=== PATIENT | male | born 1950 | race Caucasian/White ===

== ENCOUNTER 2016-11-14 14:28 | Outpatient (CLI) | payer MEDICARE ==
[2016-11-14] MEDS ORDERED: IOPAMIDOL-300 100 ML VIAL IVP ONE (16:29)
== END 2016-11-14 14:29 | disposition home or self-care (01) ==
DX: R31.0 Gross hematuria (principal); Q61.02 Congenital multiple renal cysts; K86.89 Other specified diseases of pancreas; C61 Malignant neoplasm of prostate
CPT/HCPCS: 36415; 74178; 82565; 84520; Q9967

== ENCOUNTER 2017-07-06 14:11 | Emergency (ER) | payer MEDICARE ==
[2017-07-06] MEDS ORDERED: ASPIRIN CHEW 81 MG TABLET PO STA (14:32)
[2017-07-06 14:35] LABS: BASOPHILS # (AUTO) 0.1 10^3/uL (0.0-0.1); EOSINOPHILS # (AUTO) 0.3 10^3/uL (0.0-0.7); EOSINOPHILS % (AUTO) 3.7 %; HCT - HEMATOCRIT 38.1 % (42.0-52.0); HGB - HEMOGLOBIN 13.1 g/dL (14.0-18.0); LYMPHOCYTES # (AUTO) 1.1 10^3/uL (1.5-3.5); LYMPHOCYTES % (AUTO) 16.3 %; MEAN CORPUSCULAR HEMOGLOBIN 31.1 pg (27.0-31.0); MEAN CORPUSCULAR HGB CONC 34.4 g/dL (32.0-36.0); MEAN CORPUSCULAR VOLUME 90.5 fL (80.0-94.0); MEAN PLATELET VOLUME 7.9 fL (7.4-11.4); MONOCYTES # (AUTO) 0.6 10^3/uL (0.0-1.0); MONOCYTES % (AUTO) 8.8 %; NEUTROPHILS # (AUTO) 4.9 10^3/uL (1.5-6.6); NEUTROPHILS % (AUTO) 70.2 %; RED BLOOD COUNT 4.21 10^6/uL (4.70-6.10); RED CELL DISTRIBUTION WIDTH 13.7 % (12.0-15.0)
[2017-07-06 14:49] LABS: ALBUMIN/GLOBULIN RATIO 1.4 (1.0-2.2); BILIRUBIN,TOTAL 0.4 mg/dL (0.2-1.0); CALCIUM 8.9 mg/dL (8.5-10.3); POTASSIUM 4.1 mmol/L (3.5-5.0); TOTAL PROTEIN 6.7 g/dL (6.7-8.2)
--- NOTE | 2017-07-06 15:11 | XRAY Preliminary Report ---
Exam: XR CHEST 1 VIEW IMPRESSION: No acute cardiopulmonary disease seen. [facility] SITE ID: [id number]
--- NOTE | 2017-07-06 15:14 | XRAY Report ---
EXAM: CHEST RADIOGRAPHY EXAM DATE: 07/06/2017 02:59 PM. CLINICAL HISTORY: Chest pain. COMPARISON: None. TECHNIQUE: 1 view. FINDINGS: Lungs/Pleura: No consolidation or airspace disease. No pleural effusion. No pneumothorax. Mediastinum: Within exam limitations, the cardiomediastinal contour is normal. IMPRESSION: No acute cardiopulmonary disease seen. [facility] Referring Provider Line: [phone] SITE ID: [id number]
--- NOTE | 2017-07-06 15:26 | ED Physician Documentation ---
PD HPI CHEST PAIN - Stated complaint Stated Complaint: CHEST TIGHTNESS - Chief complaint Chief Complaint: Cardiac - History obtained from History obtained from: Patient (pt steates that over the past week he has had occasional right sided chest pain. He states that today he started to have the pain shortly after waking this AM. Worse with palpation. NO SOB,) Review of Systems Constitutional: denies: Fever, Chills, Fatigue Eyes: denies: Decreased vision Throat: denies: Oral lesions / sores, Sore throat Cardiac: reports: Chest pain / pressure Respiratory: denies: Dyspnea, Cough, Wheezing GI: denies: Abdominal Pain, Nausea, Vomiting, Constipation, Diarrhea : denies: Dysuria, Frequency Skin: denies: Rash Neurologic: denies: Syncope, Headache, LOC PD PAST MEDICAL HISTORY - Past Medical History Past Medical History: Yes Cardiovascular: Hypertension Other Past Medical History: GI issues - Present Medications Home Medications: Ambulatory Orders Medication Instructions Recorded Confirmed Losartan Potassium 25 mg PO DAILY 07/06/17 07/06/17 Metoprolol Tartrate 25 mg PO DAILY 07/06/17 07/06/17 Pantoprazole [Protonix] 20 mg PO BID 07/06/17 07/06/17 - Allergies Allergies/Adverse Reactions: Allergies Allergy/AdvReac Type Severity Reaction Status Date / Time No Known Drug Allergies Allergy Verified 07/06/17 14:21 - Social History Does the pt smoke?: No Smoking Status: Never smoker PD ED PE NORMAL - Vitals Vital signs reviewed: Yes - General General: Alert and oriented X 3, No acute distress - HEENT HEENT: Atraumatic, Moist mucous membranes - Cardiac Cardiac: RRR, No murmur, No gallop, No rub - Respiratory Respiratory: No respiratory distress, Clear bilaterally - Abdomen Abdomen: Normal bowel sounds, Non tender, Non distended - Back Back: No CVA TTP - Derm Derm: Normal color, Warm and dry, No rash - Neuro Neuro: Alert and oriented X 3 Eye Opening: Spontaneous Motor: Obeys Commands Verbal: Oriented GCS Score: 15 Results - Vitals Vitals: Vital Signs - 24 hr 07/06/17 07/06/17 14:16 14:25 Temperature 36.4 C L Heart Rate 68 Respiratory 16 Rate Blood Pressure 155/71 H Blood Pressure 148/62 H [148/62] Blood Pressure 155/71 H [Left] O2 Saturation 96 Oxygen O2 Source Room air - EKG (time done) 1418 Rate: Rate (enter#) Rhythm: NSR [place]: Normal Intervals: Normal ND, QRS normal QRS: Normal Ischemia: Normal ST segments - Labs Labs: Laboratory Tests 07/06/17 07/06/17 07/06/17 14:25 14:25 14:25 WBC 7.0 RBC 4.21 L Hgb 13.1 L Hct 38.1 L MCV 90.5 MCH 31.1 H MCHC 34.4 RDW 13.7 Plt Count 169 MPV 7.9 Neut # 4.9 Lymph # 1.1 L [place] # 0.6 Eos # 0.3 Baso # 0.1 Absolute Nucleated RBC 0.00 Nucleated RBC % 0.0 Sodium 137 Potassium 4.1 Chloride 101 Carbon Dioxide 26 Anion Gap 10.0 BUN 19 Creatinine 1.0 Estimated GFR (MDRD) 74 L Glucose 148 H Calcium 8.9 Total Bilirubin 0.4 AST 27 ALT 31 Alkaline Phosphatase 67 Troponin I < 0.04 Total Protein 6.7 Albumin 3.9 Globulin 2.8 Albumin/Globulin Ratio 1.4 Lipase 21 L - Rads (name of study) CXR Radiology: Prelim report reviewed, EMP read contemporaneously PD MEDICAL DECISION MAKING - ED course Complexity details: d/w patient ED course: pt with pinpoint right sided chest pain that is worse with palpation. has had constant pain since this AM. trop neg, CXR neg. doubt ACS, or PE or PNA, discussed with patient. he has a follow up with his GI provider on friday. He was given return precautions. Departure - Departure Disposition: Home, Self Care Clinical Impression: Chest wall pain Condition: Good Instructions: ED Strain Chest Wall Follow-Up: Rodney Jacob MD [Primary Care Provider] - Comments: Keep your appointment on friday. Return to the ER for any new or worsening symptoms.
[2017-07-06 16:05] VITALS: BP 143/62
== END 2017-07-06 16:03 | disposition home or self-care (01) ==
LOC: ED 14:11
DX: R07.89 Other chest pain (principal); I44.4 Left anterior fascicular block; R94.31 Abnormal electrocardiogram [ECG] [EKG]; I10 Essential (primary) hypertension
CPT/HCPCS: 71010; 80053; 83690; 84484; 85025; 93005; 99283

== ENCOUNTER 2017-07-06 22:04 | Emergency (ER) | payer MEDICARE ==
[2017-07-06 22:10] VITALS: BP 138/81
[2017-07-07 00:28] LABS: BILIRUBIN,URINE NEGATIVE (NEGATIVE); UA w/ MICROSCOPIC CHARGE YES
[2017-07-07 00:31] LABS: UR CULTURE IF IND INDICATED; WBC,URINE 0-3 /HPF (0-3)
--- NOTE | 2017-07-07 00:57 | ED Physician Documentation ---
PD HPI MALE - Stated complaint Stated Complaint: MALE - Chief complaint Chief Complaint: General - History obtained from History obtained from: Patient - History of Present Illness Timing - onset: Today Timing - details: Abrupt onset, Still present Associated symptoms: Hematuria Similar symptoms before: Work up / diagnostics, Treatment Recently seen: Emergency Dept - Additional information Additional information: Patient is a 66 year old male with a history of prostate CA post resection and radiation who is presenting to the emergency department for hematuria. patient states that he has varicose veins and sometimes when he strains the "pop" and he gets hematuria. patient states that he had hematuria today but it was persistent and he was passing clots so he came to the emergency department for evaluation. Review of Systems Constitutional: denies: Fever, Chills Eyes: reports: Reviewed and negative Ears: reports: Reviewed and negative Nose: reports: Reviewed and negative Throat: reports: Reviewed and negative Cardiac: denies: Chest pain / pressure, Palpitations Respiratory: denies: Dyspnea, Cough GI: denies: Abdominal Pain, Nausea, Vomiting : reports: Hesitancy, Hematuria Skin: reports: Reviewed and negative Musculoskeletal: reports: Reviewed and negative Neurologic: denies: Near syncope, Syncope Psychiatric: reports: Anxiety Immunocompromised: denies: Immunocompromised PD PAST MEDICAL HISTORY - Past Medical History Cardiovascular: Hypertension - Present Medications Home Medications: Ambulatory Orders Medication Instructions Recorded Confirmed Losartan Potassium 25 mg PO DAILY 07/06/17 07/06/17 Metoprolol Tartrate 25 mg PO DAILY 07/06/17 07/06/17 Pantoprazole [Protonix] 20 mg PO BID 07/06/17 07/06/17 - Allergies Allergies/Adverse Reactions: Allergies Allergy/AdvReac Type Severity Reaction Status Date / Time No Known Drug Allergies Allergy Verified 07/06/17 22:10 - Social History Does the pt smoke?: No Smoking Status: Never smoker PD ED PE NORMAL - General General: Alert and oriented X 3, Well developed/nourished - HEENT HEENT: Atraumatic, PERRL, Pharynx benign - Neck Neck: Supple, no meningeal sign - Cardiac Cardiac: RRR, No murmur - Respiratory Respiratory: No respiratory distress - Abdomen Abdomen: Non tender, Non distended - Male Male : Pt declined - Derm Derm: Normal color, Warm and dry - Extremities Extremities: No deformity, Normal ROM s pain - Neuro Neuro: Alert and oriented X 3, No motor deficit, No sensory deficit, Normal speech PD ED PE EXPANDED - General General: Alert, Anxious Results - Vitals Vitals: Vital Signs - 24 hr 07/06/17 22:08 Temperature 36.3 C L Heart Rate 81 Respiratory 18 Rate Blood Pressure 138/81 H O2 Saturation 97 Oxygen O2 Source Room air - Labs Labs: Laboratory Tests 07/07/17 00:00 Urine Color RED/BLOODY Urine Clarity BLOODY Urine pH 8.0 H Ur Specific [place] 1.020 Urine Protein Urine Glucose (UA) NEGATIVE Urine Ketones NEGATIVE Urine Occult Blood LARGE H Urine Nitrite Urine Bilirubin NEGATIVE Urine Urobilinogen 0.2 (NORMAL) Ur Leukocyte Esterase NEGATIVE Urine RBC TNTC H Urine WBC 0-3 Ur Squamous Epith Cells NONE SEEN Urine Bacteria None Seen Ur Microscopic Review INDICATED Urine Culture Comments INDICATED PD MEDICAL DECISION MAKING - ED course Complexity details: reviewed old records, reviewed results, re-evaluated patient , considered differential, d/w patient ED course: patient was seen and examined at bedside. Patient was able to produce a small amount of urine that was mainly blood but there was no bacteria. bladder scan was performed which showed only 120ml of fluid. Patient stated that he still felt full and proceeded to keep drinking. patient states that he barely drinks water. patient had two other small urinary output and repeat bladder scan was under 200ml. the risk benefits of placing a ortiz was not in favor of the patient at this time. Patient required no further work up and was stable for discharge with outpatient follow up. Departure - Departure Disposition: 01 Home, Self Care Clinical Impression: Hematuria Condition: Good Discharge Date/Time: 07/07/17 01:02
== END 2017-07-07 01:02 | disposition home or self-care (01) ==
LOC: ED 22:04
DX: R31.9 Hematuria, unspecified (principal); I83.90 Asymptomatic varicose veins of unspecified lower extremity; I10 Essential (primary) hypertension; Z85.46 Personal history of malignant neoplasm of prostate; R07.9 Chest pain, unspecified; R07.89 Other chest pain; I44.4 Left anterior fascicular block; R94.31 Abnormal electrocardiogram [ECG] [EKG]
CPT/HCPCS: 71010; 80053; 81001; 81003; 83690; 84484; 85025; 87086; 93005; 99283; 99284

== ENCOUNTER 2017-09-05 08:13 | Outpatient (CLI) | payer MEDICARE ==
[2017-09-05] MEDS ORDERED: IOPAMIDOL-300 100 ML VIAL ONE (08:23)
[2017-09-05] MEDS ORDERED: IOPAMIDOL-300 50 ML VIAL ONE (08:23)
[2017-09-05 08:37] LABS: CREATININE 0.8 mg/dL (0.6-1.2)
[2017-09-05] MEDS ORDERED: IOPAMIDOL-300 100 ML VIAL IVP ONE (08:42)
[2017-09-05] MEDS ORDERED: IOPAMIDOL-300 50 ML VIAL PO ONE (08:42)
--- NOTE | 2017-09-05 15:41 | CT Report ---
DATE OF SERVICE: 09/05/2017 CT OF THE ABDOMEN AND PELVIS WITH CONTRAST: 09/05/2017 CLINICAL INDICATION: Followup pancreatic mass TECHNIQUE: Axial CT images of the abdomen and pelvis were obtained with 100 mL Isovue 300 intravenously. COMPARISON: Previous CT of 11/14/2016. FINDINGS: Limited evaluation of the lung bases is unremarkable. ABDOMEN: Trace ascites is seen adjacent to the liver. The gallbladder is dilated. There has been interval increase in size of pancreatic mass, now measuring 7.3 x 4.6 cm. The mass encases the celiac artery and superior mesenteric artery, as well as the left renal vein. There is mild intrahepatic biliary dilatation and dilation of the common bile duct. The spleen is unremarkable. The adrenal glands are unremarkable. The kidneys demonstrate parapelvic cysts. No bowel dilatation, free gas, or abdominal adenopathy is appreciated. PELVIS: Small amount of ascites is seen in the pelvis. Postoperative changes of prostatectomy are present. No pelvic sidewall adenopathy is seen. Osseous structures demonstrate degenerative changes. IMPRESSION: INTERVAL ENLARGEMENT OF PANCREATIC MASS, NOW WITH ENCASEMENT OF THE CELIAC AND SUPERIOR MESENTERIC ARTERIES, LEFT RENAL VEIN, AND OBSTRUCTION OF THE COMMON BILE DUCT. SMALL VOLUME OF ASCITES. In accordance with CT protocol optimization, one or more of the following dose reduction techniques were utilized for this exam: automated exposure control, adjustment of mA and/or KV based on patient size, or use of iterative reconstructive technique. TD: 09/05/2017 16:40
== END 2017-09-05 08:14 | disposition home or self-care (01) ==
LOC: LAB 08:13
PROVIDERS: ATTEND Family Medicine
DX: K86.89 Other specified diseases of pancreas (principal); K83.1 Obstruction of bile duct; R18.8 Other ascites
CPT/HCPCS: 36415; 74177; 82565; Q9967

== ENCOUNTER 2018-02-08 | Emergency (ER) | END 2018-02-08 21:53 | disposition home or self-care (01) ==

== ENCOUNTER 2018-02-20 21:28 | Emergency (ER) | payer MEDICARE ==
[2018-02-20 22:44] VITALS: BP 103/75
--- NOTE | 2018-02-20 22:44 | ED Physician Documentation ---
PD HPI ABD PAIN - Stated complaint Stated Complaint: DRAIN ABD - Chief complaint Chief Complaint: Abd Pain - History obtained from History obtained from: Patient - History of Present Illness Timing - onset: Other (This is a very pleasant 67-year-old gentleman with pancreatic cancer who has recurrent ascites and is here for gradual onset ascites which causes him discomfort and would like it drained. Of note in the interim since his last visit here he has discussed with his oncologist and he is considering hospice and we talked about that a lot.) Review of Systems Constitutional: reports: Fatigue. denies: Fever, Chills GI: reports: Abdominal Pain. denies: Nausea, Vomiting Musculoskeletal: denies: Neck pain, Back pain PD PAST MEDICAL HISTORY - Past Medical History Cardiovascular: Hypertension - Past Surgical History Past Surgical History: Yes - Present Medications Home Medications: Ambulatory Orders Medication Instructions Recorded Confirmed Ondansetron HCl [Zofran] 4 mg PO 02/08/18 Water Pill 02/08/18 - Allergies Allergies/Adverse Reactions: Allergies Allergy/AdvReac Type Severity Reaction Status Date / Time No Known Drug Allergies Allergy Verified 02/20/18 21:48 - Social History Does the pt smoke?: No Smoking Status: Never smoker Does the pt drink ETOH?: No Does the pt have substance abuse?: No - Immunizations Immunizations are current?: No - POLST Patient has POLST: No PD ED PE NORMAL - Vitals Vital signs reviewed: Yes - General General: Alert and oriented X 3, No acute distress - Abdomen Abdomen: Other (He has tense ascites but he is not tender.) - Neuro Neuro: Alert and oriented X 3, Normal speech Results - Vitals Vitals: Vital Signs - 24 hr 02/20/18 02/20/18 02/20/18 21:43 22:10 22:20 Temperature 36.8 C Heart Rate 82 69 70 Respiratory 15 Rate Blood Pressure 89/68 L 110/81 H 101/71 O2 Saturation 99 99 02/20/18 02/20/18 02/20/18 22:28 22:31 22:37 Temperature Heart Rate 71 72 99 Respiratory Rate Blood Pressure 118/73 110/76 109/74 O2 Saturation 99 Oxygen O2 Source Room air Procedures - Paracentesis Preparation: Consent obtained, Ultrasound guidance, Sterile prep and drape, Local anesthesia Location: RLQ Technique: Z-tract, Catheter over needle Fluid: Clear, Volume - enter cc (5.8liters) Aftercare: No complications, Patient tolerated well PD MEDICAL DECISION MAKING - Sepsis Event Vital Signs: Vital Signs - 24 hr 02/20/18 02/20/18 02/20/18 21:43 22:10 22:20 Temperature 36.8 C Heart Rate 82 69 70 Respiratory 15 Rate Blood Pressure 89/68 L 110/81 H 101/71 O2 Saturation 99 99 02/20/18 02/20/18 02/20/18 22:28 22:31 22:37 Temperature Heart Rate 71 72 99 Respiratory Rate Blood Pressure 118/73 110/76 109/74 O2 Saturation 99 Oxygen O2 Source Room air Departure - Departure Disposition: 01 Home, Self Care Clinical Impression: Ascites Qualifiers: Ascites type: malignant Qualified Code(s): R18.0 - Malignant ascites Pancreatic cancer Qualifiers: Pancreatic malignancy location: unspecified Qualified Code(s): C25.9 - Malignant neoplasm of pancreas, unspecified Condition: Good Record reviewed to determine appropriate education?: Yes Instructions: Paracentesis Dc
== END 2018-02-20 22:54 | disposition home or self-care (01) ==
LOC: ED 21:28
DX: R18.0 Malignant ascites (principal); C25.9 Malignant neoplasm of pancreas, unspecified; I10 Essential (primary) hypertension
CPT/HCPCS: 49082; 99283

== ENCOUNTER 2018-03-02 21:03 | Emergency (ER) | payer MEDICARE ==
[2018-03-03] MEDS ORDERED: LIDOCAINE 2%-EPI 1:100000 20 ML MDV ONE (00:23)
[2018-03-03 00:59] VITALS: BP 110/72
--- NOTE | 2018-03-03 01:03 | ED Physician Documentation ---
PD HPI ABD PAIN - Stated complaint Stated Complaint: FLUID DRAINED - Chief complaint Chief Complaint: Abd Pain - History obtained from History obtained from: Patient - History of Present Illness Timing - onset: Chronic Timing - details: Gradual onset, Still present Quality: Fullness/distended Location: All over / everywhere Similar symptoms before: Work up / diagnostics, Treatment Recently seen: Emergency Dept - Additional information Additional information: patient is a 67 year old male with a history of pancreatic cancer who is presenting to the emergency department for abdominal pain and distention. Patient states that he has not been able to schedule out patient paracentesis so he normally comes to the emergency department to get it performed. Review of Systems Ten Systems: 10 systems reviewed and negative Constitutional: denies: Fever, Chills GI: reports: Abdominal Swelling PD PAST MEDICAL HISTORY - Past Medical History Past Medical History: Yes Cardiovascular: Hypertension - Past Surgical History Past Surgical History: Yes - Present Medications Home Medications: Ambulatory Orders Medication Instructions Recorded Confirmed No Known Home Medications [No 03/02/18 03/02/18 Known Home Medications] - Allergies Allergies/Adverse Reactions: Allergies Allergy/AdvReac Type Severity Reaction Status Date / Time No Known Drug Allergies Allergy Verified 03/02/18 21:28 - Social History Does the pt smoke?: No Smoking Status: Never smoker Does the pt drink ETOH?: No Does the pt have substance abuse?: No - Immunizations Immunizations are current?: Yes - POLST Patient has POLST: No PD ED PE NORMAL - Vitals Vital signs reviewed: Yes - General General: Alert and oriented X 3 - HEENT HEENT: Atraumatic - Cardiac Cardiac: RRR - Respiratory Respiratory: No respiratory distress - Derm Derm: Normal color - Extremities Extremities: No deformity PD ED PE EXPANDED - General General: Alert, Other - HEENT HEENT: Dry mucous membranes - Abdomen Abdomen: Distended. No: Rebound, Guarding Results - Vitals Vitals: Vital Signs - 24 hr 03/02/18 03/02/18 03/03/18 21:23 23:06 00:58 Temperature 36.4 C L Heart Rate 88 70 71 Respiratory 16 18 18 Rate Blood Pressure 95/66 119/91 H 110/72 O2 Saturation 100 100 100 Oxygen O2 Source Room air Procedures - Paracentesis Preparation: Consent obtained, Ultrasound guidance, Sterile prep and drape, Local anesthesia Location: RLQ Technique: Catheter over needle Fluid: Clear Aftercare: No complications, Patient tolerated well, Dressing applied PD MEDICAL DECISION MAKING - ED course Complexity details: reviewed old records, reviewed results, re-evaluated patient , considered differential, d/w patient ED course: patient was seen and examined at bedside. Therapeutic paracentisis was performed draining 4 liters of fluid. Patient tolerated well. patient required no further inpatient work up at this time and was stable for discharge with outpatient follow up. - Sepsis Event Vital Signs: Vital Signs - 24 hr 03/02/18 03/02/18 03/03/18 21:23 23:06 00:58 Temperature 36.4 C L Heart Rate 88 70 71 Respiratory 16 18 18 Rate Blood Pressure 95/66 119/91 H 110/72 O2 Saturation 100 100 100 Oxygen O2 Source Room air Departure - Departure Disposition: 01 Home, Self Care Clinical Impression: Ascites Condition: Good Instructions: Paracentesis Dc Follow-Up: Julio Zayas MD [Primary Care Provider] - Tomorrow Comments: you had four liters removed today from you abdomen. You mild have small amount of leaking. You should follow up with your doctor tomorrow to schedule a follow up appointment for drainage. you may return to the emergency department at any time for new, worsening or uncontrollable symptoms.
== END 2018-03-03 01:09 | disposition home or self-care (01) ==
LOC: ED 21:03
DX: R18.8 Other ascites (principal); C25.9 Malignant neoplasm of pancreas, unspecified; I10 Essential (primary) hypertension
CPT/HCPCS: 49082; 99283

== ENCOUNTER 2018-03-10 12:32 | Emergency (ER) | payer MEDICARE ==
--- NOTE | 2018-03-10 13:54 | ED Physician Documentation ---
PD HPI ABD PAIN - Stated complaint Stated Complaint: SIDE PX/DISCOMFORT - Chief complaint Chief Complaint: Abd Pain - History obtained from History obtained from: Patient - History of Present Illness Timing - onset: How many days ago (few days of fatigue, increased abd pain, lightheaded. His ascites is firm and the pain increased more today. No fevers.) Timing - duration: Days Timing - details: Gradual onset, Still present Quality: Cramping, Aching, Fullness/distended Location: All over / everywhere Improved by: No: Laying still Worsened by: Moving, Breathing, Position (feels dyspnea when lying down.) Associated symptoms: No: Fever, Nausea, Vomiting, Diarrhea, Dysuria Similar symptoms before: Diagnosis (tense ascites, and was drained last about 10 days ago, and had it done 4 times before that through outpatient but having to get it rescheduled again and has appt with consumer education specialist this week. Is to get a port placed this week.) Recently seen: Emergency Dept (10 days ago for similar) Review of Systems Ten Systems: 10 systems reviewed and negative Constitutional: denies: Fever, Chills Nose: denies: Rhinorrhea / runny nose, Congestion Throat: denies: Sore throat Cardiac: denies: Chest pain / pressure, Palpitations Respiratory: reports: Dyspnea. denies: Cough, Wheezing GI: reports: Abdominal Pain, Abdominal Swelling, Nausea. denies: Vomiting, Diarrhea, Bloody / black stool : denies: Dysuria, Frequency Neurologic: reports: Generalized weakness. denies: Focal weakness, Numbness PD PAST MEDICAL HISTORY - Past Medical History Cardiovascular: Hypertension - Past Surgical History Past Surgical History: Yes - Present Medications Home Medications: Ambulatory Orders Medication Instructions Recorded Confirmed No Known Home Medications [No 03/02/18 03/02/18 Known Home Medications] - Allergies Allergies/Adverse Reactions: Allergies Allergy/AdvReac Type Severity Reaction Status Date / Time No Known Drug Allergies Allergy Verified 03/02/18 21:28 - Social History Does the pt smoke?: No Smoking Status: Never smoker Does the pt drink ETOH?: No Does the pt have substance abuse?: No - Immunizations Immunizations are current?: Yes - POLST Patient has POLST: No PD ED PE NORMAL - Vitals Vital signs reviewed: Yes (BP initially low but improved with IV fluids. ) - General General: Alert and oriented X 3, No acute distress, Well developed/nourished - HEENT HEENT: Pharynx benign. No: Moist mucous membranes - Neck Neck: Supple, no meningeal sign, No adenopathy - Cardiac Cardiac: RRR, No murmur - Respiratory Respiratory: Clear bilaterally - Abdomen Abdomen: No organomegaly, Other (tensely distended and some tender. No redness nor rash. ). No: Normal bowel sounds (decreased) - Male Male : Deferred - Rectal Rectal: Deferred - Back Back: No CVA TTP - Derm Derm: Normal color, Warm and dry - Extremities Extremities: No tenderness to palpate, Normal ROM s pain, No edema, No calf tenderness / cord - Neuro Neuro: Alert and oriented X 3, No motor deficit, Normal speech Eye Opening: Spontaneous Motor: Obeys Commands Verbal: Oriented GCS Score: 15 Results - Vitals Vitals: Vital Signs - 24 hr 03/10/18 03/10/18 03/10/18 12:44 13:54 17:00 Temperature 36.3 C L Heart Rate 94 87 67 Respiratory 20 14 12 Rate Blood Pressure 75/58 L 93/72 114/87 H O2 Saturation 94 100 100 03/10/18 03/10/18 17:36 18:55 Temperature 97.5 C H Heart Rate 68 76 Respiratory 20 12 Rate Blood Pressure 121/81 H 108/73 O2 Saturation 94 100 Oxygen O2 Source Room air - Labs Labs: Microbiology 03/10/18 17:10 Body Fluid Culture - Preliminary Peritoneal Fluid Laboratory Tests 03/10/18 03/10/18 03/10/18 15:05 15:05 15:05 WBC 8.4 RBC 3.25 L Hgb 11.0 L Hct 31.7 L MCV 97.5 H MCH 33.7 H MCHC 34.6 RDW 15.5 H Plt Count 280 MPV 6.5 L Neut # (Auto) 7.0 H Lymph # (Auto) 0.6 L Bibb # (Auto) 0.8 Eos # (Auto) 0.0 Baso # (Auto) 0.0 Absolute Nucleated RBC 0.00 Nucleated RBC % 0.0 PT 14.3 H INR 1.3 H APTT 29.5 Sodium 121 L Potassium 4.6 Chloride 87 L Carbon Dioxide 26 Anion Gap 7.0 BUN 37 H Creatinine 1.0 Estimated GFR (MDRD) 74 L Glucose 142 H Calcium 7.9 L Magnesium 2.3 Total Bilirubin 1.1 H AST 42 ALT 33 Alkaline Phosphatase 198 H Ammonia Total Protein 5.5 L Albumin 2.3 L Globulin 3.2 Albumin/Globulin Ratio 0.7 L Lipase 18 L Fluid Source Fluid Color Fluid Clarity Fluid WBC Fluid RBC Fluid Neutrophils % Fluid Lymphocytes % Fluid Monocytes % Fluid Macrophages % Fld Mesothelial Cell % 03/10/18 03/10/18 15:05 17:10 WBC RBC Hgb Hct MCV MCH MCHC RDW Plt Count MPV Neut # (Auto) Lymph # (Auto) Bibb # (Auto) Eos # (Auto) Baso # (Auto) Absolute Nucleated RBC Nucleated RBC % PT INR APTT Sodium Potassium Chloride Carbon Dioxide Anion Gap BUN Creatinine Estimated GFR (MDRD) Glucose Calcium Magnesium Total Bilirubin AST ALT Alkaline Phosphatase Ammonia 71.4 H Total Protein Albumin Globulin Albumin/Globulin Ratio Lipase Fluid Source PERITONEAL Fluid Color YELLOW Fluid Clarity HAZY Fluid WBC 166 Fluid RBC 300 Fluid Neutrophils % 7.0 Fluid Lymphocytes % 47.0 Fluid Monocytes % 18.0 Fluid Macrophages % 14.0 Fld Mesothelial Cell % 14.0 Procedures - Paracentesis Preparation: Consent obtained (verbal and department form), Ultrasound guidance , Sterile prep and drape, Local anesthesia Location: RLQ Technique: Z-tract, Catheter over needle Fluid: Clear, Sent for cell count, Sent for gram stain, Sent for culture, Volume - enter cc (5000) Aftercare: No complications, Patient tolerated well, Dressing applied. No: Fluid leak - comment PD MEDICAL DECISION MAKING - ED course Complexity details: reviewed results (got records from [facility] and his baseline sodium has been about 123-125; other labs also about equally abnormal. No prior ammonia level. ), re-evaluated patient (he is feeling better, improved breathing, and improved BP with IV fluids and the paracentesis. ), considered differential (was being scheduled for paracentesis through PCP and has appt with consumer education specialist, but pain of the ascites was too much today and he could not wait the few days for it. Also feeling weak and lightheaded. ) , d/w patient, d/w family - Sepsis Event Vital Signs: Vital Signs - 24 hr 03/10/18 03/10/18 03/10/18 12:44 13:54 17:00 Temperature 36.3 C L Heart Rate 94 87 67 Respiratory 20 14 12 Rate Blood Pressure 75/58 L 93/72 114/87 H O2 Saturation 94 100 100 03/10/18 03/10/18 17:36 18:55 Temperature 97.5 C H Heart Rate 68 76 Respiratory 20 12 Rate Blood Pressure 121/81 H 108/73 O2 Saturation 94 100 Oxygen O2 Source Room air Departure - Departure Disposition: 01 Home, Self Care Clinical Impression: Pancreatic cancer, Hyponatremia Ascites Qualifiers: Ascites type: malignant Qualified Code(s): R18.0 - Malignant ascites Abdominal pain Qualifiers: Abdominal location: generalized Qualified Code(s): R10.84 - Generalized abdominal pain Condition: Stable Record reviewed to determine appropriate education?: Yes Follow-Up: uJlio Zayas MD [Primary Care Provider] - Comments: Continue usual medications. Follow-up with your cancers specialist this week as planned. Return if other symptoms develop. Discharge Date/Time: 03/10/18 19:00
[2018-03-10] MEDS ORDERED: MORPHINE 10 MG/ML VIAL IVP STA (14:30)
[2018-03-10] MEDS ORDERED: SODIUM CHLORIDE 0.9% 1,000 ML IV ONE (14:30)
[2018-03-10] MEDS ORDERED: ALBUMIN 25% 12.5 GM/50 ML VIAL IV STA (14:31)
[2018-03-10] MEDS ORDERED: ONDANSETRON 4 MG/2 ML VIAL IVP STA (14:31)
[2018-03-10 15:21] LABS: BASOPHILS % (AUTO) 0.5 %; EOSINOPHILS % (AUTO) 0.2 %; LYMPHOCYTES # (AUTO) 0.6 10^3/uL (1.5-3.5); MEAN CORPUSCULAR HEMOGLOBIN 33.7 pg (27.0-31.0); MEAN CORPUSCULAR HGB CONC 34.6 g/dL (32.0-36.0); MEAN CORPUSCULAR VOLUME 97.5 fL (80.0-94.0); MEAN PLATELET VOLUME 6.5 fL (7.4-11.4); MONOCYTES # (AUTO) 0.8 10^3/uL (0.0-1.0); MONOCYTES % (AUTO) 9.5 %; NEUTROPHILS % (AUTO) 82.8 %; PLT - PLATELET COUNT 280 10^3/uL (130-450); RED BLOOD COUNT 3.25 10^6/uL (4.70-6.10); RED CELL DISTRIBUTION WIDTH 15.5 % (12.0-15.0); WHITE BLOOD COUNT 8.4 x10^3/uL (4.8-10.8)
[2018-03-10 15:26] LABS: INR 1.3 (0.8-1.2); PT - PROTHROMBIN TIME 14.3 secs (9.9-12.6)
[2018-03-10 15:33] LABS: ALBUMIN 2.3 g/dL (3.2-5.5); ALBUMIN/GLOBULIN RATIO 0.7 (1.0-2.2); BILIRUBIN,TOTAL 1.1 mg/dL (0.2-1.0); CALCIUM 7.9 mg/dL (8.5-10.3); MAGNESIUM 2.3 mg/dL (1.7-2.8); TOTAL PROTEIN 5.5 g/dL (6.7-8.2)
[2018-03-10 18:11] LABS: CC,BF RBC 300 /mm^3
[2018-03-10 18:13] LABS: BF COLOR YELLOW; BF SOURCE PERITONEAL
[2018-03-10 18:56] VITALS: BP 108/73
== END 2018-03-10 19:00 | disposition home or self-care (01) ==
LOC: ED 12:32
DX: C25.9 Malignant neoplasm of pancreas, unspecified (principal); R18.0 Malignant ascites; E87.1 Hypo-osmolality and hyponatremia; R10.84 Generalized abdominal pain; R53.1 Weakness; R42 Dizziness and giddiness; I10 Essential (primary) hypertension
CPT/HCPCS: 36415; 49082; 80053; 82140; 83690; 83735; 85025; 85610; 85730; 87070; 87205; 89051; 96365; 96375; 99283; 99284; P9047

== ENCOUNTER 2018-03-11 16:16 | Observation (INO) | payer MEDICARE ==
[2018-03-11 17:00] LABS: INR 1.3 (0.8-1.2); PT - PROTHROMBIN TIME 14.8 secs (9.9-12.6)
--- NOTE | 2018-03-11 17:02 | ED Physician Documentation ---
History of Present Illness - Stated complaint Stated Complaint: PE - Chief complaint Chief Complaint: General - Additonal information Additional information: hx from pt and family and [facility] onc [employer] 67 male followed by [facility] oncology for pancreatic cancer had CT chest abd pelvis with contrast today at [facility] that showed two possible PEs rad called nurse who called pt and told him to go to the ER he came to [facility] states his BP has been unusually low and he has passed out twice without injury no CP or SOA but + cough abd pain not new, some distension just drained yesterday Review of Systems Constitutional: denies: Fever, Chills Cardiac: denies: Chest pain / pressure Respiratory: reports: Cough. denies: Dyspnea GI: reports: Abdominal Pain Neurologic: reports: Syncope Endocrine: denies: Easy bruising / bleeding Immunocompromised: denies: Immunocompromised PD PAST MEDICAL HISTORY - Past Medical History Cardiovascular: Hypertension - Past Surgical History Past Surgical History: Yes - Present Medications Home Medications: Ambulatory Orders Medication Instructions Recorded Confirmed No Known Home Medications [No 03/02/18 03/11/18 Known Home Medications] - Allergies Allergies/Adverse Reactions: Allergies Allergy/AdvReac Type Severity Reaction Status Date / Time No Known Drug Allergies Allergy Verified 03/02/18 21:28 - Social History Does the pt smoke?: No Smoking Status: Never smoker Does the pt drink ETOH?: No Does the pt have substance abuse?: No - Immunizations Immunizations are current?: Yes - POLST Patient has POLST: No PD ED PE NORMAL - Vitals Vital signs reviewed: Yes - General General: Alert and oriented X 3, Other (cachectic) - HEENT HEENT: Atraumatic - Neck Neck: Supple, no meningeal sign - Cardiac Cardiac: RRR - Respiratory Respiratory: No respiratory distress, Clear bilaterally - Abdomen Abdomen: Soft, Other (mild TTP, mod distension, RLQ bandaid s leak) - Derm Derm: Normal color - Neuro Neuro: Other (alert cooperative weak tired) Results - Vitals Vitals: Vital Signs - 24 hr 03/11/18 03/11/18 03/11/18 16:21 18:45 18:48 Temperature 36.3 C L Heart Rate 77 70 76 Respiratory 20 14 16 Rate Blood Pressure 87/57 L 105/74 91/59 L O2 Saturation 94 98 100 Oxygen O2 Source Room air - EKG (time done) 1651 Rate: Rate (enter#) (71) Rhythm: NSR [place]: LAD Intervals: Normal [place] Ischemia: Non specific changes - Labs Labs: Laboratory Tests 03/11/18 03/11/18 03/11/18 16:50 16:50 16:50 WBC 7.7 RBC 3.16 L Hgb 10.6 L Hct 31.5 L MCV 99.6 H MCH 33.5 H MCHC 33.6 RDW 15.6 H Plt Count 235 MPV 6.9 L Neut # (Auto) 6.5 Lymph # (Auto) 0.6 L [place] # (Auto) 0.6 Eos # (Auto) 0.0 Baso # (Auto) 0.0 Absolute Nucleated RBC 0.00 Nucleated RBC % 0.0 PT 14.8 H INR 1.3 H APTT 26.8 Sodium 122 L Potassium 5.1 H Chloride 88 L Carbon Dioxide 27 Anion Gap 7.0 BUN 33 H Creatinine 0.8 Estimated GFR (MDRD) 96 Glucose 106 H Calcium 7.7 L - Rads (name of study) CTPA Radiology: See rad report (RLL branch vessel PE, no infaarct, no apparent right heart strain) PD MEDICAL DECISION MAKING - ED course ED course: d/w oncology [employer] for the pt and he advises that after reviewing pt chart he finds no contraindications to anticoagulation (no brain mets etc) onc recommends pt get lovenox 1mg / kg BID and that I write for a 30 days supply however pt has low BP which is new for him last few days so PE risk severity index = high risk will admit for further eval, perhaps echo etc spoke to hospitalist Dr Malone and 750 PM pt and family updated added on lactate and blood cx as well - Sepsis Event Vital Signs: Vital Signs - 24 hr 03/11/18 03/11/18 03/11/18 16:21 18:45 18:48 Temperature 36.3 C L Heart Rate 77 70 76 Respiratory 20 14 16 Rate Blood Pressure 87/57 L 105/74 91/59 L O2 Saturation 94 98 100 Oxygen O2 Source Room air Departure - Departure Disposition: ED Place in Observation Clinical Impression: Pancreatic cancer Hypotension Qualifiers: Hypotension type: unspecified hypotension type Qualified Code(s): I95.9 - Hypotension, unspecified Pulmonary embolism Qualifiers: Pulmonary embolism type: other Chronicity: acute Acute cor pulmonale presence: without acute cor pulmonale Qualified Code(s): I26.99 - Other pulmonary embolism without acute cor pulmonale Condition: Fair
[2018-03-11] MEDS ORDERED: SODIUM CHLORIDE 0.9% 1,000 ML IV ONE ×2 (17:04→21:00)
[2018-03-11 17:11] LABS: LYMPHOCYTES # (AUTO) 0.6 10^3/uL (1.5-3.5); MONOCYTES # (AUTO) 0.6 10^3/uL (0.0-1.0); NEUTROPHILS # (AUTO) 6.5 10^3/uL (1.5-6.6); WHITE BLOOD COUNT 7.7 x10^3/uL (4.8-10.8)
[2018-03-11 17:12] LABS: CALCIUM 7.7 mg/dL (8.5-10.3); CREATININE 0.8 mg/dL (0.6-1.2)
[2018-03-11] MEDS ORDERED: IOPAMIDOL-300 100 ML VIAL ONE (17:18)
[2018-03-11 17:36] LABS: BASOPHILS % (AUTO) 0.5 %; EOSINOPHILS % (AUTO) 0.1 %; HGB - HEMOGLOBIN 10.6 g/dL (14.0-18.0); LYMPHOCYTES % (AUTO) 7.7 %; MEAN CORPUSCULAR HEMOGLOBIN 33.5 pg (27.0-31.0); MEAN CORPUSCULAR HGB CONC 33.6 g/dL (32.0-36.0); MEAN CORPUSCULAR VOLUME 99.6 fL (80.0-94.0); MEAN PLATELET VOLUME 6.9 fL (7.4-11.4); MONOCYTES % (AUTO) 7.3 %; NEUTROPHILS % (AUTO) 84.4 %; PLT - PLATELET COUNT 235 10^3/uL (130-450); RED BLOOD COUNT 3.16 10^6/uL (4.70-6.10); RED CELL DISTRIBUTION WIDTH 15.6 % (12.0-15.0)
[2018-03-11] MEDS ORDERED: IOPAMIDOL-300 100 ML VIAL IVP ONE (18:19)
[2018-03-11] MEDS ORDERED: SODIUM BICARBONATE ABBOJECT 50 MEQ/50 ML SYRINGE IVP STA (18:23)
--- NOTE | 2018-03-11 18:42 | CT Report ---
Procedure Date: 03/11/2018 Accession Number: [id number] / [id number] Procedure: CT - Chest Angio (PE) CPT Code: FULL RESULT: EXAM: CT ANGIOGRAM CHEST EXAM DATE: 03/11/2018 06:14 PM. CLINICAL HISTORY: Pulmonary embolism. COMPARISON: None. TECHNIQUE: Routine helical imaging was performed through the chest in the pulmonary arterial phase. IV Contrast: 80 ML ISOVUE 300. Reconstructions: Coronal 3-D MIP reconstructions.Sagittal and coronal. In accordance with CT protocol optimization, one or more of the following dose reduction techniques were utilized for this exam: automated exposure control, adjustment of mA and/or KV based on patient size, or use of iterative reconstructive technique. FINDINGS: Pulmonary Arteries: Diagnostic quality: Adequate through the segmental arteries. Study is positive for pulmonary embolism within branch vessels supplying the right lower lobe. There is no evidence of central embolus. No clear evidence of right heart strain. Lungs/Pleura: No evidence of lobar consolidation or effusion. No central airway abnormalities. No pneumothorax. Mediastinum: Heart size is normal. There are no enlarged axillary, supraclavicular, mediastinal, or hilar lymph nodes. Thoracic Aorta: Unremarkable. Upper Abdomen: There is large ascites. There is pneumobilia. Biliary stent is in place. There is marked by stool within colon. Other: None. IMPRESSION: 1. Study is positive for pulmonary embolism within branch vessels supplying the right lower lobe. No evidence of central embolus. No clear evidence of right heart strain. 2. There is no evidence of thoracic aortic dissection. 3. Lungs demonstrate no evidence of focal infiltrate or pneumothorax. 4. There is large ascites. There is pneumobilia. There is large volume stool within visualized colon. RAD[facility]
[2018-03-11] MEDS ORDERED: ENOXAPARIN 60 MG/0.6 ML SYRINGE SUBQ STA (18:50)
[2018-03-11] MEDS ORDERED: ZOLPIDEM 5 MG TABLET PO PRN (19:49)
[2018-03-11] MEDS ORDERED: SODIUM CHLORIDE FLUSH 0.9% 10 ML SYRINGE IVP PRN (19:49)
[2018-03-11] MEDS ORDERED: PROMETHAZINE 25 MG/1 ML VIAL IM PRN (19:49)
[2018-03-11] MEDS ORDERED: oxyCODONE 5 MG TABLET PO PRN (19:49)
[2018-03-11] MEDS ORDERED: ACETAMINOPHEN 325 MG TABLET PO PRN (19:49)
[2018-03-11] MEDS ORDERED: IBUPROFEN 400 MG TABLET PO PRN (19:49)
[2018-03-11] MEDS ORDERED: PROCHLORPERAZINE 10 MG/2 ML VIAL IVP PRN (19:49)
[2018-03-11] MEDS ORDERED: ONDANSETRON 4 MG/2 ML VIAL IVP PRN (19:49)
--- NOTE | 2018-03-11 19:55 | HISTORY & PHYSICAL EXAMINATION ---
Chief Complaint - Chief Complaint Chief Complaint: Told to come to hospital due to clot in his lungs. History of Present Illness - Admitted From Admitted From:: Emergency department - History Obtained From Records Reviewed: Yes History obtained from: Patient Exam Limitations: None - History of Present Illness HPI Comment/Other: Patient is a 67-year-old gentleman with a past medical history significant for pancreatic cancer status post 7 cycles of chemotherapy starting in September 2017 which he has not tolerated well with frequent diarrhea, weight loss and poor hydration. 2 weeks ago the patient's chemotherapy was discontinued by his oncologist due to poor tolerance. The patient states that over the last 2 weeks he has regained much of his strength and is feeling significantly better. He states that he is now motivated to try treatment again. He states that he is scheduled to see an oncologist in [place] tomorrow to discuss a possible clinical trial. He states that yesterday he was seen here at [facility] for a therapeutic paracentesis during which 5 L of fluid were removed from his abdomen. He states that today he went to [facility] for a scheduled CT of his abdomen and pelvis to evaluate the response of his cancer to chemotherapy. He states he was headed back home with his when he received a phone call from [facility] telling him to go to the hospital as he appears to have a clot in his lungs. The patient presented to the emergency department at [facility] with a chief complaint of being told to come to the hospital due to clot in his lungs. The patient denies any chest pain, shortness of air, orthopnea, PND, palpitations, fevers or chills. The patient does admit to feeling weak and tired due to his chemotherapy but states this is been improving. He also states that he has had decreased appetite which is also been improving. He does admit to weight loss over the last 6 months. The patient does admit to increased lower extremity swelling in bilateral lower extremities. He also states that he has some hyperpigmentation of his knees that started today. The patient does admit to constipation for the last couple of days. He also states that he has been feeling dizzy since his paracentesis yesterday. The patient denies any headaches, blurred vision, runny nose, sore throat, difficulty swallowing, nasal congestion, abdominal pain, nausea, vomiting, diarrhea, urinary urgency, urinary frequency, dysuria, muscle aches, back pain, neck stiffness, or any focal neurologic deficits. The patient also has a past medical history significant for prostate cancer status post prostatectomy and radiation which has been in remission for many years. On presentation to the emergency department the patient is afebrile and heart rate is 77. The patient however was hypotensive with a blood pressure of 87/57 and remained with blood pressures between 80 and 90 systolic. The patient was not in any respiratory distress and was not hypoxic. The patient's initial lab work did reveal a mild anemia with a hemoglobin of 10.6. It also revealed a sodium of 122 with a potassium of 5.1 and chloride of 88 suggesting that the patient was likely dehydrated. The patient did appear to be dry on examination and was given fluid in the emergency department however blood pressure did remain low. The patient did undergo a CT angiogram of his chest/thorax which revealed pulmonary embolism within branch vessels supplying the right lower lobe. There was no clear evidence of right heart strain or central embolus on the CT angiogram. The patient was placed in observation for treatment with Lovenox for the pulmonary embolism, echocardiogram and IV fluids for his hypotension. The patient's oncologist was contacted by the emergency room physician and he did recommend Lovenox for treatment of the patient's pulmonary embolism. History - Past Medical History Cardiovascular: reports: Hypertension GI: reports: Other (Pancreatic Cancer) : reports: Other (Prostate cancer status post prostatectomy and radiation.) MRSA Hx?: No - Family & Social History Family History: Mother: (Mother and father are both healthy), Father: , Other family: Cancer (Uncle and cousin have prostate cancer history) Living arrangement: At home Living Situation: With spouse/s.o. Social History Notes: Patient lives in [place] with his . They have one son who is 47 years old and lives in [place] but is here helping out given the patient's condition. 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 The patient quit drinking alcohol about 3 years ago and even at that time rarely drank. He denies any tobacco use or illicit drug use. - POLST Patient has POLST: No POLST Status: Full Code Meds/Allgy - Home Medications Home Medications: Ambulatory Orders Medication Instructions Recorded Confirmed No Known Home Medications [No 03/02/18 03/11/18 Known Home Medications] - Allergies Allergies/Adverse Reactions: Allergies Allergy/AdvReac Type Severity Reaction Status Date / Time No Known Drug Allergies Allergy Verified 03/02/18 21:28 Review of Systems - Other Findings Other Findings: A comprehensive review of systems was performed the pertinent positives and negatives are stated above in the HPI and the remainder of the review of systems is negative. Exam - Vital Signs Reviewed Vital Signs: Yes Vital Signs: Vital Signs x48h Temp Pulse Resp BP Pulse Ox 03/11/18 18:48 76 16 91/59 L 100 03/11/18 18:45 70 14 105/74 98 03/11/18 16:21 36.3 C L 77 20 87/57 L 94 - Physical Exam General Appearance: positive: No acute distress, Alert, Other (Cachectic appearing) Eyes Bilateral: positive: Normal inspection, PERRL, EOMI, No lid inflammation, Conjunctivae nml, No scleral icterus ENT: positive: ENT inspection nml, Pharynx nml, Dry mucous membranes. negative : Purulent nasal drainage, Pharyngeal erythema, Oral lesions Neck: positive: Nml inspection, Thyroid nml, No JVD, Trachea midline. negative : Lymphadenopathy (R), Lymphadenopathy (L), Carotid bruit, Tracheal deviation Respiratory: positive: Chest non-tender, No respiratory distress, Breath sounds nml. negative: Wheezes, Rales, Rhonchi Cardiovascular: positive: Regular rate & rhythm, No murmur, No gallop Peripheral Pulses: positive: 2+ Abdomen: positive: Non-tender, No organomegaly, Nml bowel sounds, Other ( Abdomen is distended with positive fluid wave). negative: Guarding, Rebound, Hepatomegaly Back: positive: Nml inspection. negative: CVA tenderness (R), CVA tenderness (L ) Skin: positive: Color nml, No rash, Warm, Dry, Other (Patient has discoloration of both of his knees). negative: Cyanosis, Diaphoresis, Pallor Extremities: positive: Non-tender, Full ROM, Nml appearance, Pedal edema ( Bilateral lower extremity swelling up to the patient's knees) Neurologic/Psychiatric: positive: Oriented x3, CN's nml (2-12), Motor nml, Sensation nml, Mood/affect nml Conclusion/Plan - Problem List (1) Pulmonary embolism Conclusion/Plan: Patient went for a CT of his abdomen and pelvis to follow-up on response to chemotherapy for his pancreatic cancer. Incidentally on the CT scan was concerning for pulmonary embolism and therefore patient was called on his way home and told to go to the emergency department. Here in the emergency department the patient presented without any hypoxia or shortness of breath but underwent a CT angiogram of his lungs which revealed a pulmonary embolism within a branch vessel supplying the right lower lobe without evidence of central embolus or evidence of any right heart strain. The emergency room physician spoke with the patient's oncologist who recommended that the patient be started on Lovenox for pulmonary embolism in the setting of a malignancy. Patient likely has hypercoagulable state secondary to ongoing pancreatic cancer. Plan: Patient will be treated with Lovenox 1 mg/kg twice a day We will get an echocardiogram in the morning Continue to monitor patient overnight in observation for worsening respiratory status or evidence of right heart strain. Telemetry monitoring Qualifiers: Pulmonary embolism type: other Chronicity: acute Acute cor pulmonale presence: without acute cor pulmonale Qualified Code(s): I26.99 - Other pulmonary embolism without acute cor pulmonale (2) Hypotension Conclusion/Plan: On presentation to the emergency department the patient is hypotensive with blood pressure running in the 80s-90s systolic. The patient states that this is not normal for him and he does have previous history of hypertension. The patient does appear dry on examination and did undergo a paracentesis the other day with removal of 5 L of fluid. The patient's hypertension is unlikely to be due to his pulmonary embolism given that this does not appear to be a saddle PE or a large PE with any right heart strain. The patient is not hypoxic or short of breath. Likely the hypotension is secondary to dehydration. Patient will be given IV fluids and we will monitor to see if we can improve his blood pressure. We will hold any antihypertensive medications while the blood pressure is low. Qualifiers: Hypotension type: unspecified hypotension type Qualified Code(s): I95.9 - Hypotension, unspecified (3) Hyponatremia Conclusion/Plan: Appears to have hypovolemic hyponatremia this patient appears to be dehydrated. The patient did undergo a therapeutic paracentesis just yesterday with removal of 5L of fluid which could have caused significant fluid shift and volume loss. The patient's sodium was 121 yesterday but previous value was in the normal range. Patient will be given IV fluids and we will continue to monitor the patient's sodium. (4) Pancreatic cancer Conclusion/Plan: Patient has a history of pancreatic cancer for which he has been getting his treatment at [facility]. The patient also has ascites secondary to the pancreatic cancer and just underwent a therapeutic paracentesis with removal of 5L of ascitic fluid. The patient has undergone 7 cycles of chemotherapy with poor tolerance secondary to diarrhea, weight loss and poor appetite. Just 2 weeks ago his oncologist decided to stop chemotherapy. Patient is feeling significantly better after stopping chemotherapy over the last 2 weeks. He is motivated to start a clinical trial for which she was scheduled to see a oncologist in [place] tomorrow however we will have to miss this appointment. Plan: Patient will be given supportive care for any symptoms of his pancreatic cancer including pain, nausea or vomiting. Patient would like to continue to be a full code at this time. Patient will follow-up for further treatment as an outpatient. - Lab Results Lab results reviewed: Yes Fish Bones: 03/11/18 16:50 03/11/18 16:50 Other Lab Results: Laboratory Results WBC 7.7 x10^3/uL (4.8-10.8) 03/11/18 16:50 RBC 3.16 10^6/uL (4.70-6.10) L 03/11/18 16:50 Hgb 10.6 g/dL (14.0-18.0) L 03/11/18 16:50 Hct 31.5 % (42.0-52.0) L 03/11/18 16:50 MCV 99.6 fL (80.0-94.0) H 03/11/18 16:50 MCH 33.5 pg (27.0-31.0) H 03/11/18 16:50 MCHC 33.6 g/dL (32.0-36.0) 03/11/18 16:50 RDW 15.6 % (12.0-15.0) H 03/11/18 16:50 Plt Count 235 10^3/uL (130-450) 03/11/18 16:50 MPV 6.9 fL (7.4-11.4) L 03/11/18 16:50 Neut # (Auto) 6.5 10^3/uL (1.5-6.6) 03/11/18 16:50 Lymph # (Auto) 0.6 10^3/uL (1.5-3.5) L 03/11/18 16:50 [place] # (Auto) 0.6 10^3/uL (0.0-1.0) 03/11/18 16:50 Eos # (Auto) 0.0 10^3/uL (0.0-0.7) 03/11/18 16:50 Baso # (Auto) 0.0 10^3/uL (0.0-0.1) 03/11/18 16:50 Absolute Nucleated RBC 0.00 x10^3/uL 03/11/18 16:50 Nucleated RBC % 0.0 /100WBC 03/11/18 16:50 PT 14.8 secs (9.9-12.6) H 03/11/18 16:50 INR 1.3 (0.8-1.2) H 03/11/18 16:50 APTT 26.8 secs (24.9-33.3) 03/11/18 16:50 Sodium 122 mmol/L (135-145) L 03/11/18 16:50 Potassium 5.1 mmol/L (3.5-5.0) H 03/11/18 16:50 Chloride 88 mmol/L (101-111) L 03/11/18 16:50 Carbon Dioxide 27 mmol/L (21-32) 03/11/18 16:50 Anion Gap 7.0 (6-13) 03/11/18 16:50 BUN 33 mg/dL (6-20) H 03/11/18 16:50 Creatinine 0.8 mg/dL (0.6-1.2) 03/11/18 16:50 Estimated GFR (MDRD) 96 (>89) 03/11/18 16:50 Glucose 106 mg/dL (70-100) H 03/11/18 16:50 Calcium 7.7 mg/dL (8.5-10.3) L 03/11/18 16:50 - Diagnostic Imaging Results Diagnostic Imaging Results: positive: Final report reviewed Diagnostic Imaging Results Comments: CT angiogram chest/thorax Impression: 1. Study is positive for pulmonary embolism within branch vessels supplying the right lower lobe. No evidence of central embolus. No clear evidence of right heart strain. 2. There is no evidence of thoracic aortic dissection. 3. Lungs demonstrate no evidence of focal infiltrate or pneumothorax. 4. There is large ascites. There is pneumobilia. There is large volume stool within the visualized colon. Core Measures - Anticipated LOS I expect patient to be DC'd or transferred within 96 hours.: Yes - DVT/VTE - Prophylaxis VTE/DVT Device ordered at admit?: Yes
[2018-03-11] MEDS: SODIUM CHLORIDE 0.9% 1,000 ML IV SCH ×2 (20:50→22:00)
[2018-03-11] MEDS ORDERED: ZINC OXIDE 20% OINT 28.35 GM TUBE TOP PRN (21:56)
[2018-03-12] MEDS: SODIUM CHLORIDE FLUSH 0.9% 10 ML SYRINGE IVP SCH ×3 (05:26→16:19)
[2018-03-12 06:13] LABS: BASOPHILS % (AUTO) 0.3 %; EOSINOPHILS % (AUTO) 0.4 %; HGB - HEMOGLOBIN 9.2 g/dL (14.0-18.0); LYMPHOCYTES # (AUTO) 0.6 10^3/uL (1.5-3.5); LYMPHOCYTES % (AUTO) 11.3 %; MEAN CORPUSCULAR HEMOGLOBIN 33.8 pg (27.0-31.0); MEAN CORPUSCULAR HGB CONC 33.9 g/dL (32.0-36.0); MEAN CORPUSCULAR VOLUME 99.5 fL (80.0-94.0); MEAN PLATELET VOLUME 6.8 fL (7.4-11.4); MONOCYTES # (AUTO) 0.5 10^3/uL (0.0-1.0); MONOCYTES % (AUTO) 9.1 %; NEUTROPHILS % (AUTO) 78.9 %; PLT - PLATELET COUNT 174 10^3/uL (130-450); RED BLOOD COUNT 2.73 10^6/uL (4.70-6.10); RED CELL DISTRIBUTION WIDTH 15.7 % (12.0-15.0)
[2018-03-12 06:27] LABS: INR 1.3 (0.8-1.2); PT - PROTHROMBIN TIME 14.7 secs (9.9-12.6)
[2018-03-12 06:40] LABS: ALBUMIN 1.9 g/dL (3.2-5.5); ALBUMIN/GLOBULIN RATIO 0.8 (1.0-2.2); BILIRUBIN,TOTAL 0.8 mg/dL (0.2-1.0); CALCIUM 7.3 mg/dL (8.5-10.3); CREATININE 0.7 mg/dL (0.6-1.2); MAGNESIUM 2.1 mg/dL (1.7-2.8); PHOSPHORUS 2.9 mg/dL (2.5-4.6); TOTAL PROTEIN 4.3 g/dL (6.7-8.2)
[2018-03-12] MEDS ORDERED: POLYETHYLENE GLYCOL 3350 17 GM PACKET PO SCH (09:00)
[2018-03-12] MEDS ORDERED: FAMOTIDINE 20 MG TABLET PO SCH (09:00)
[2018-03-12] MEDS ORDERED: ENOXAPARIN 60 MG/0.6 ML SYRINGE SUBQ SCH (09:00)
[2018-03-12] MEDS: SODIUM CHLORIDE 0.9% 1,000 ML IV SCH (09:33)
[2018-03-12 16:03] VITALS: BP 96/66
--- NOTE | 2018-03-12 16:03 | Discharge Plan ---
Discharge Plan Disposition: Home, Self Care Condition: Good Prescriptions: Enoxaparin [Lovenox] 60 mg SUBQ BID #60 syringe Diet: Regular Activity Restrictions: Activity as Tolerated Shower Restrictions: No Driving Restrictions: No Weight Bearing: Full Weight Additional Instructions or Follow Up instructions: You were admitted due to a low sodium level and were found to have blood clots in your lungs. 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 Please see your PCP within one week. No Smoking: If you smoke, Please STOP! Call for help. Follow-up with: Julio Zayas MD [Primary Care Provider] -
--- NOTE | 2018-03-12 16:04 | DISCHARGE SUMMARY ---
Discharge Summary Admit Date: 03/11/18 Discharge Date: 03/12/18 Discharging Provider: JOCELYN Alvarado Primary Care Provider: Hayden Zayas/Dr. Cartwright Code Status: Do Not Attempt Resuscitation Condition at Discharge: Good Discharge Disposition: 50 Hospice/Home DC/Xfer - DIAGNOSES Admission Diagnoses: Other pulmonary embolism without acute cor pulmonale (I26.99) Hypotension, unspecified (I95.9) Hypo-osmolality and hyponatremia (E87.1) Malignant neoplasm of pancreas, unspecified (C25.9) Discharge Diagnoses with Status of Each Condition: Pulmonary embolism (I26.99) new on this admission, stable. Hypotension (I95.9) resolved, stable. Hyponatremia (E87.1) resolved, stable. Pancreatic cancer (C25.9) chronic, stable. - HPI History of Present Illness: HPI per Dr. Malone: Jacinda Metzger is a 67-year-old gentleman with a past medical history of pancreatic cancer status post 7 cycles of chemotherapy starting in September 2017 which he has not tolerated well with frequent diarrhea, weight loss and poor hydration. 2 weeks ago the patient's chemotherapy was discontinued by his oncologist due to poor tolerance. The patient states that over the last 2 weeks he has regained much of his strength and is feeling significantly better. He states that he is now motivated to try treatment again. He states that he is scheduled to see an oncologist in [place] tomorrow to discuss a possible clinical trial. He states that yesterday he was seen here at [facility] for a therapeutic paracentesis during which 5 L of fluid were removed from his abdomen. He states that today he went to [facility] for a scheduled CT of his abdomen and pelvis to evaluate the response of his cancer to chemotherapy. He states he was headed back home with his when he received a phone call from [facility] telling him to go to the hospital as he appears to have a clot in his lungs. The patient presented to the emergency department at [facility] with a chief complaint of being told to come to the hospital due to clot in his lungs. The patient denies any chest pain, shortness of air, orthopnea, PND, palpitations, fevers or chills. The patient does admit to feeling weak and tired due to his chemotherapy but states this is been improving. He also states that he has had decreased appetite which is also been improving. He does admit to weight loss over the last 6 months. The patient does admit to increased lower extremity swelling in bilateral lower extremities. He also states that he has some hyperpigmentation of his knees that started today. The patient does admit to constipation for the last couple of days. He also states that he has been feeling dizzy since his paracentesis yesterday. The patient denies any headaches, blurred vision, runny nose, sore throat, difficulty swallowing, nasal congestion, abdominal pain, nausea, vomiting, diarrhea, urinary urgency, urinary frequency, dysuria, muscle aches, back pain, neck stiffness, or any focal neurologic deficits. The patient also has a past medical history significant for prostate cancer status post prostatectomy and radiation which has been in remission for many years. On presentation to the emergency department the patient is afebrile and heart rate is 77. The patient however was hypotensive with a blood pressure of 87/57 and remained with blood pressures between 80 and 90 systolic. The patient was not in any respiratory distress and was not hypoxic. The patient's initial lab work did reveal a mild anemia with a hemoglobin of 10.6. It also revealed a sodium of 122 with a potassium of 5.1 and chloride of 88 suggesting that the patient was likely dehydrated. The patient did appear to be dry on examination and was given fluid in the emergency department however blood pressure did remain low. The patient did undergo a CT angiogram of his chest/thorax which revealed pulmonary embolism within branch vessels supplying the right lower lobe. There was no clear evidence of right heart strain or central embolus on the CT angiogram. The patient was placed in observation for treatment with Lovenox for the pulmonary embolism, echocardiogram and IV fluids for his hypotension. The patient's oncologist was contacted by the emergency room physician and he did recommend Lovenox for treatment of the patient's pulmonary embolism. - HOSPITAL COURSE Hospital Course: (1) Pulmonary embolism Patient went for a CT of his abdomen and pelvis to follow-up on response to chemotherapy for his pancreatic cancer. Incidentally on the CT scan was concerning for pulmonary embolism and therefore patient was called on his way home and told to go to the emergency department. After arriving in the ED, the patient presented without any hypoxia or shortness of breath but underwent a CT angiogram of his lungs which revealed a pulmonary embolism within a branch vessel supplying the right lower lobe without evidence of central embolus or evidence of any right heart strain. The emergency room physician spoke with the patient's oncologist who recommended that the patient be started on Lovenox for pulmonary embolism in the setting of a malignancy. Patient likely has hypercoagulable state secondary to ongoing pancreatic cancer. Patient was started on Lovenox 1 mg/kg twice a day, monitored overnight in observation for worsening respiratory status or evidence of right heart strain. He was sent home the next day, with Lovenox to continue and to be administered by his family. (2) Hypotension On presentation to ED, the patient is hypotensive with blood pressures in the 80s-90s systolic. The patient states that this is not normal for him and he does have previous history of hypertension. The patient underwent a paracentesis a few days prior to admission, with removal of 5 L of fluid. The patient's hypotension is unlikely to be due to his pulmonary embolism given that this does not appear to be a saddle PE or a large PE with any right heart strain. The patient is not hypoxic or short of breath. Likely the hypotension is secondary to dehydration. Patient was given gentle IV fluids and was monitored overnight. His usual antihypertensive medications were placed on hold during his stay and resumed upon discharge. (3) Hyponatremia Appears to have hypovolemic hyponatremia this was thought to be related to dehydration. The patient did undergo a therapeutic paracentesis, in which 5L of fluid was removed, which could have caused significant fluid shift and volume loss. The patient's sodium was 121 yesterday but previous value was in the normal range. Patient was given IV fluids and we was continuously monitored. At the time of discharge, the sodium slightly improved to 124, but the patient was unwilling to stay one more night for further correction. (4) Pancreatic cancer Patient has a history of pancreatic cancer for which he has been getting his treatment at [facility]. The patient also has ascites secondary to the pancreatic cancer and just underwent a therapeutic paracentesis with removal of 5L of ascitic fluid. The patient has undergone 7 cycles of chemotherapy with poor tolerance secondary to diarrhea, weight loss and poor appetite. Just 2 weeks ago his oncologist decided to stop chemotherapy and was admitted to Hospice under the care of Dr. Cartwright. Patient is feeling significantly better after stopping chemotherapy over the last 2 weeks. He is motivated to start a clinical trial for which she was scheduled to see a oncologist in [place], in the next week. Patient was given supportive care for any symptoms of his pancreatic cancer including pain, nausea or vomiting. Patient will follow-up for further treatment as an outpatient. Disposition: The patient was discharged home with family. Lovenox was sent over early in the morning to the pharmacy. The pharmacy states that they had 10 doses on hand which was acceptable to the family. 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 - ALLERGIES Allergies/Adverse Reactions: Allergies Allergy/AdvReac Type Severity Reaction Status Date / Time No Known Drug Allergies Allergy Verified 03/02/18 21:28 - MEDICATIONS Home Medications: Ambulatory Orders Medication Instructions Recorded Confirmed Diphenoxylate/Atropine [Lomotil] 1 each PO QID PRN 03/12/18 03/12/18 Enoxaparin [Lovenox] 60 mg SUBQ BID #60 syringe 03/12/18 Enoxaparin [Lovenox] 60 mg SUBQ Q12H #60 syringe 03/12/18 - PHYSICAL EXAM AT DISCHARGE General Appearance: positive: No acute distress, Alert Eyes Bilateral: positive: Normal inspection ENT: positive: ENT inspection nml, No signs of dehydration Neck: positive: Nml inspection, No JVD Respiratory: positive: Chest non-tender, No respiratory distress, Other ( diminished with scattered crackles bilateral lobes) Cardiovascular: positive: No gallop, Irregularly irregular, Systolic murmur, Decreased pulse(s) Peripheral Pulses: positive: 1+ Abdomen: positive: Non-tender, Hepatomegaly, Abnml bowel sounds, Other (firm, rounded) Back: positive: Nml inspection Skin: positive: No rash, Warm, Dry, Other (slight jaundice) Extremities: positive: Non-tender, No pedal edema Neurologic/Psychiatric: positive: Disoriented to place, Disoriented to time, Weakness, Sensory loss, Slurred/abnml speech, Depressed mood/affect Reflexes: Bicep (R): 1+, Bicep (L): 1+ - LABS Result Diagrams: 03/12/18 05:15 03/12/18 16:12 - FOLLOW UP Follow Up: Disposition: 01 Home, Self Care Condition: Good Prescriptions: Enoxaparin [Lovenox] 60 mg SUBQ BID #60 syringe Diet: Regular Activity Restrictions: Activity as Tolerated Shower Restrictions: No Driving Restrictions: No Weight Bearing: Full Weight Additional Instructions or Follow Up instructions: You were admitted due to a low sodium level and were found to have blood clots in your lungs. 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 - TIME SPENT Time Spent in Discharge (Minutes): 50
[2018-03-12 16:27] LABS: CALCIUM 7.5 mg/dL (8.5-10.3); CREATININE 0.7 mg/dL (0.6-1.2)
== END 2018-03-12 17:30 | disposition home or self-care (01) ==
LOC: ED 16:16 → MS2 19:49
PROVIDERS: ADMIT Internal Medicine; ATTEND Nurse Practitioner
DX: I26.99 Other pulmonary embolism without acute cor pulmonale (principal); I95.9 Hypotension, unspecified; E87.1 Hypo-osmolality and hyponatremia; C25.9 Malignant neoplasm of pancreas, unspecified; R18.0 Malignant ascites; R53.1 Weakness; T45.1X5A Adverse effect of antineoplastic and immunosuppressive drugs, initial encounter; E87.5 Hyperkalemia; E83.51 Hypocalcemia; D64.9 Anemia, unspecified; I10 Essential (primary) hypertension; Z66 Do not resuscitate; Z98.890 Other specified postprocedural states; Z85.46 Personal history of malignant neoplasm of prostate; Z90.79 Acquired absence of other genital organ(s); Z92.3 Personal history of irradiation
CPT/HCPCS: 36415; 71275; 80048; 80053; 83605; 83735; 84100; 85025; 85610; 85730; 87040; 93005; 93306; 96361; 96372; 96374; 99283; 99284; A9270; G0378; J1650; Q9967